=== PATIENT | male | born 1955 ===

== ENCOUNTER 2019-03-08 13:50 | Emergency (ER) | payer OTHER ==
[~2019-03-08] VITALS: Ht 177.8 cm; Wt 99.8 kg
[2019-03-08] MEDS ORDERED: HALOPERIDOL LACTATE 5 MG/ML INJ VIAL IM ONE (14:15)
[2019-03-08] MEDS ORDERED: LORazepam 2MG/ML-1ML VIAL IM ONE (14:15)
[2019-03-08] MEDS ORDERED: diphenhdrAMINE HCL 50 MG/1 ML VL IM ONE (14:15)
[2019-03-08] MEDS ORDERED: SODIUM CHLORIDE 0.9% 1,000 ML IV ONE (14:15)
[2019-03-08 14:35] LABS: Basophils # (auto) 0.1 uL; Basophils % (auto) 0.6 % (0.0-2.0); Eosinophils # (auto) 0.1 uL; Eosinophils % (auto) 0.5 % (0.0-7.0); Hematocrit 44.3 % (41.0-53.0); Hemoglobin 14.9 g/dL (13.5-17.5); Lymphocytes % (auto) 7.9 % (10.0-50.0); Mean Corpuscular Hemoglobin 28.6 pg (28.0-32.0); Mean Corpuscular Hgb Conc. 33.7 g/dL (32.0-36.0); Monocytes # (auto) 0.7 uL; Monocytes % (auto) 5.6 % (0.0-12.0); Neutrophils # (auto) 10.5 uL; Neutrophils % (auto) 85.4 % (37.0-80.0); Platelet Count (auto) 172 10^3/uL (140-450); Red Blood Cells 5.22 10^6/uL (4.5-5.90); Red Cell Distribution Width 13.7 % (11.8-14.3); White Blood Cell 12.3 10^3/uL (4.4-10.8)
[2019-03-08 14:56] LABS: Alanine Aminotransferase 39 U/L (16-61); Anion Gap 7 (5-15); Blood Alcohol < 3.0 mg/dL (0-5); Blood Urea Nitrogen 9 mg/dL (7-18); Calcium 9.1 mg/dL (8.5-10.1); Carbon Dioxide 25 mmol/L (21-32); Chloride 109 mmol/L (98-107); Glucose 131 mg/dL (74-106); Potassium 3.3 mmol/L (3.5-5.1); Sodium 141 mmol/L (136-145)
[2019-03-08 15:00] LABS: Alkaline Phosphatase 77 U/L (45-117); Aspartate Aminotransferase 18 U/L (15-37); BUN/Creatinine Ratio 8.9; Bilirubin, Total 0.4 mg/dL (0.2-1.0); GFR African American 97 mL/min; GFR Non-African American 80 mL/min; Total Protein 7.2 g/dL (6.4-8.2)
[2019-03-08 16:16] LABS: Alcohol, Urine < 3.0 mg/dL (0-5); Amphetamine Screen, Urine NEGATIVE (NEGATIVE); Barbiturate Scree,Urine NEGATIVE (NEGATIVE); Benzodiazephine Screen, Urine NEGATIVE (NEGATIVE); Cannabinoid Screen, Urine NEGATIVE (NEGATIVE); Cocaine Screen, Urine NEGATIVE (NEGATIVE); Opiate Scree,Urine NEGATIVE (NEGATIVE); Phencyclidine Screen, Urine NEGATIVE (NEGATIVE)
[2019-03-12 12:00] VITALS: BP 122/86
== END 2019-03-12 12:12 | disposition home or self-care (01) ==
LOC: EDBD 13:50 → ER 14:04
DX: F29 Unspecified psychosis not due to a substance or known physiological condition (principal); F32.9 Major depressive disorder, single episode, unspecified
CPT/HCPCS: 36415; 80053; 80307; 80320; 85025; 94761; 96360; 96372; 99284; J1200; J1630; J2060; J7030